=== PATIENT | female | born 1980 | race American Indian/Alaskan Native ===

== ENCOUNTER 2021-12-12 09:36 | Emergency (ER) | payer MEDICARE ==
[2021-12-12 10:47] LABS: Bilirubin,Urine NEG (Negative); Blood,Urine MOD (Negative); Color,Urine Straw (Yellow); Mucus,Urine FEW /HPF; Protein,Urine <15 mg/dL mg/dL (Negative); Urobilinogen,Urine < 2.0 mg/dL (<2.0); WBC,Urine < 1.0 /HPF (0.0-6.0)
[2021-12-12] MEDS ORDERED: ONDANSETRON 4 MG/2 ML INJ IV ONE (11:18)
[2021-12-12] MEDS ORDERED: MORPHINE 4 MG/1 ML INJ IV ONE (11:18)
[2021-12-12 11:43] LABS: Basophils # (Auto) 0.1 K/mm3 (0.0-0.1); Basophils % (Auto) 0.7 % (0.0-1.8); Eosinophils % (Auto) 0.5 % (0.0-4.3); Hemoglobin 12.3 gm/dl (10.1-14.3); Lymphocytes # (Auto) 2.5 K/mm3 (1.2-5.4); Lymphocytes % (Auto) 31.8 % (13.4-35.0); Mean Corpuscular HGB Conc 33 % (30-34); Mean Corpuscular Volume 90 fl (79-97); Monocytes # (Auto) 0.5 K/mm3 (0.0-0.8); Monocytes % (Auto) 6.6 % (0.0-7.3); Platelet Count 337 K/mm3 (140-440); Red Blood Count 4.25 M/mm3 (3.65-5.03)
[2021-12-12 12:00] LABS: Blood Urea Nitrogen 8 mg/dL (7-17); Calcium 9.3 mg/dL (8.4-10.2); Hemolysis Index 72
[2021-12-12] MEDS ORDERED: SODIUM CHLORIDE 0.9% 1000 ML 1,000 ML IV ONE (12:02)
[2021-12-12 12:04] LABS: BUN/Creatinine Ratio 16
[2021-12-12 12:29] VITALS: BP 168/93
--- NOTE | 2021-12-12 12:49 | Ultrasound Report ---
ULTRASOUND PELVIS INDICATION: r sided pelvic pain; concern for torsion or cyst. TECHNIQUE: Transabdominal and Transvaginal. Duplex Color Doppler used: Yes. COMPARISON: None available FINDINGS: Uterus: Present. Size: 7.7 x 3.4 x 4.1 cm. Endometrial complex: Normal measuring 0.2 cm. Mass lesions: Multiple probable uterine fibroids are seen including a submucosal mass measuring 2.8 x 2.2 x 2.0 cm. Additional findings: None. Right Ovary: Size: 2.6 x 1.5 x 2.1 cm Blood flow: Normal. Cyst or mass: None. Left Ovary: Size: 2.4 x 1.1 x 1.3 cm Blood flow: Normal. Cyst or mass: None. Urinary Bladder: Normal. Free Fluid: None. Additional Findings: None. IMPRESSION: 1. No sonographic evidence of ovarian torsion or other acute findings. 2. Probable uterine fibroids as above. Signer Name: Abisai Oviedo MD Signed: 12/12/2021 12:44 PM Workstation Name: [id number]
--- NOTE | 2021-12-12 13:12 | Cat Scan Report ---
CT ABDOMEN AND PELVIS WITH INTRAVENOUS CONTRAST INDICATION / CLINICAL INFORMATION: RLQ abd pain. TECHNIQUE: 100 cc Omnipaque [address] scans at this location are performed using CT d ose reduction for REINIER by means of automated exposure control. COMPARISON: None available. FINDINGS: ABDOMEN: There are one or more tiny calcifications in the dependent portion of the gallbladder. The g allbladder is normal in size without wall thickening or bile duct dilatation. The liver, spleen, panc reas, adrenal glands, kidneys and bowel demonstrate no significant abnormality. No adenopathy is pres ent. Mild mosaic lung attenuation is probably related to small airway disease. There are benign-appea ring cysts in both lower lobes. PELVIS: There are multiple small partially calcified uterine fibroids. I see no evidence of adnexal m ass or free fluid. The distal ureters and urinary bladder are normal. A normal appendix is present an d there is no evidence of diverticulitis. There are moderately advanced degenerative changes at the l umbosacral junction. There are metallic screws traversing both femoral necks. IMPRESSION: 1. No acute intra-abdominal disease is identified. There is no CT evidence of acute appendicitis. 2. Probable minimal cholelithiasis. Signer Name: Hubert Scruggs MD Signed: 12/12/2021 1:07 PM Workstation Name: [id number]
--- NOTE | 2021-12-12 13:40 | Emergency Department Report ---
ED Female HPI - General Chief complaint: Vaginal Bleeding Stated complaint: HEAVY BLEEDING Source: patient Mode of arrival: Ambulatory Limitations: No Limitations - History of Present Illness Initial comments: 41 yo F hx of fibroids, here with lower pelvic pain and vaginal bleeding. Also has nausea. Denies CP orSOB. Symptoms present for a few days worsened today. Pain is sharp, non radiating. - Related Data Previous Rx's Medication Instructions Recorded Last Taken Type HYDROcodone/APAP 5-325 [[place] 1 each PO Q6HR PRN 3 Days #8 tablet 12/12/21 Unknown Rx 5/325] Norgestimate-Ethinyl Estradiol 1 tab PO DAILY 28 Days 1000units 12/12/21 Unknown Rx [Sprintec 28 Day Tablet] Ondansetron [Zofran Odt] 4 mg PO Q8HR 3 Days #12 tab.rapdis 12/12/21 Unknown Rx Allergies Allergy/AdvReac Type Severity Reaction Status Date / Time No Known Allergies Allergy Verified 12/12/21 10:08 ED Review of Systems ROS: Stated complaint: HEAVY BLEEDING Other details as noted in HPI Constitutional: denies: chills, fever Eyes: denies: eye pain, eye discharge, vision change ENT: denies: ear pain, throat pain Respiratory: denies: cough, shortness of breath, wheezing Cardiovascular: denies: chest pain, palpitations Endocrine: no symptoms reported Gastrointestinal: abdominal pain, nausea, vomiting. denies: diarrhea Genitourinary: hematuria, abnormal menses. denies: urgency, dysuria, discharge Musculoskeletal: denies: back pain, joint swelling, arthralgia Skin: denies: rash, lesions Neurological: denies: headache, weakness, paresthesias Psychiatric: denies: anxiety, depression Hematological/Lymphatic: denies: easy bleeding, easy bruising ED Past Medical Hx - Past Medical History Previous Medical History?: No - Surgical History Past Surgical History?: No - Medications Home Medications: Home Medications Medication Instructions Recorded Confirmed Last Taken Type HYDROcodone/APAP 5-325 [[place] 1 each PO Q6HR PRN 3 Days #8 tablet 12/12/21 Unknown Rx 5/325] Norgestimate-Ethinyl Estradiol 1 tab PO DAILY 28 Days 1000units 12/12/21 Unknown Rx [Sprintec 28 Day Tablet] Ondansetron [Zofran Odt] 4 mg PO Q8HR 3 Days #12 tab.rapdis 12/12/21 Unknown Rx ED Physical Exam - General Limitations: No Limitations General appearance: alert, anxious, other (in pain) - Head Head exam: Present: atraumatic, normocephalic - Eye Eye exam: Present: normal appearance - ENT ENT exam: Present: mucous membranes moist - Neck Neck exam: Present: normal inspection - Respiratory Respiratory exam: Present: normal lung sounds bilaterally. Absent: respiratory distress - Cardiovascular Cardiovascular Exam: Present: regular rate, normal rhythm. Absent: systolic murmur, diastolic murmur, rubs, gallop - GI/Abdominal GI/Abdominal exam: Present: soft, tenderness (RLQ), guarding, normal bowel soun ds - Rectal Rectal exam: Present: deferred - External exam: Absent: erythema, swelling Speculum exam: Present: vaginal bleeding Bi-manual exam: Present: adnexal tenderness - Extremities Exam Extremities exam: Present: normal inspection - Back Exam Back exam: Present: normal inspection - Neurological Exam Neurological exam: Present: alert, oriented X3 - Psychiatric Psychiatric exam: Present: normal affect, normal mood - Skin Skin exam: Present: warm, dry, intact, normal color. Absent: rash ED Course Vital Signs 12/12/21 12/12/21 12/12/21 10:10 10:40 12:28 Temperature 98.6 F 98.6 F Pulse Rate 91 H 117 H 88 Respiratory 20 20 20 Rate Blood Pressure 150/85 Blood Pressure 139/96 168/93 [Left] O2 Sat by Pulse 100 98 100 Oximetry 12/12/21 12:33 Temperature Pulse Rate Respiratory Rate Blood Pressure Blood Pressure [Left] O2 Sat by Pulse 100 Oximetry - Reevaluation(s) Reevaluation #1: 12/12/21 Improved after pain meds, workup reveals uterine fibroids. Patient given fluids for mild acidosis. ED Medical Decision Making - Lab Data Result diagrams: 12/12/21 11:17 12/12/21 11:17 - Medical Decision Making 41 yo F here with severe abdominal pain. DDX includes appendicitis, R sided ovarian torsion or cyst, ruptured cyst. Plan for pain control, imaging, labs. Critical care attestation.: If time is entered above; I have spent that time in minutes in the direct care of this critically ill patient, excluding procedure time. ED Disposition Clinical Impression: Dysmenorrhea, Uterine fibroid Disposition: HOME / SELF CARE / HOMELESS Is pt being admited?: No Does the pt Need Aspirin: No Condition: Stable Instructions: Uterine Fibroids, [id number], Dysmenorrhea, [id number] Prescriptions: HYDROcodone/APAP 5-325 [[place] 5/325] 1 each PO Q6HR PRN 3 Days #8 tablet PRN Reason: Pain Norgestimate-Ethinyl Estradiol [Sprintec 28 Day Tablet] 1 tab PO DAILY 28 Days 1000units Ondansetron [Zofran Odt] 4 mg PO Q8HR 3 Days #12 tab.rapdis Referrals: PRIMARY CARE, [Primary Care Provider] - 3-5 Days Time of Disposition: 14:18
== END 2021-12-12 14:56 | disposition home or self-care (01) ==
LOC: ED 09:36
DX: N94.6 Dysmenorrhea, unspecified (principal); D25.9 Leiomyoma of uterus, unspecified
CPT/HCPCS: 36415; 74177; 76830; 80048; 81001; 84702; 85025; 87086; 87210; 87591; 93975; 96361; 96374; 96375; 99284; J2270; J2405; J7030; Q9967; Q0162